=== PATIENT | female | born 1995 | race Caucasian/White ===

== ENCOUNTER 2016-05-10 08:09 | Emergency (ER) | payer OTHER ==
[~2016-05-10] VITALS: Ht 170.2 cm; Wt 72.6 kg
[~2016-05-10 08:09] MED LIST: MEDROXYPROGESTE10 M1 PO; MOTRIN800 MG PO
[2016-05-10 08:16] VITALS: BP 152/89
[2016-05-10] MEDS ORDERED: NACL 0.9% 1,000 ML IV ONE (08:30)
--- NOTE | 2016-05-10 08:30 | NUR ---
PT AMBULATED TO BED 7
--- NOTE | 2016-05-10 08:41 | NUR ---
20/F TO ED WITH C/O FEVER, N/V/D, COUGH, AND SORE THROAT X3 WEEKS INTERMITTENTLY. PT STATES SHE HAS BODY ACHES 8/10. PT IS AFEBRILE, STATES SHE TOOK MOTRIN AT HOME. BOWEL SOUNDS PRESENT X4Q. DRY NON PRODUCTIVE COUGH. LUNGS CLEAR BILAT. HR EVEN AND REGULAR. SKIN WARM AND DRY TO TOUCH. AAOX4. HR ELEVATED, ERMD AWARE. WILL CONTINUE TO MONITOR.
[2016-05-10] MEDS ORDERED: ONDANSETRON 4 MG/2 ML VIAL IVP ONE (09:25)
[2016-05-10] MEDS ORDERED: KETOROLAC 30 MG/ML VIAL IVP ONE (09:25)
[2016-05-10 10:03] VITALS: BP 148/83
--- NOTE | 2016-05-10 10:04 | NUR ---
Patient discharged with v/s stable. Written and verbal after care instructions given and explained. Patient alert, oriented and verbalized understanding of instructions. Ambulatory with steady gait. All questions addressed prior to discharge. ID band removed. Patient advised to follow up with PMD. Rx of MOTRIN, ZOFAN, CIPRO, AND PREDNISONE given. Patient educated on indication of medication including possible reaction and side effects. Opportunity to ask questions provided and answered.
== END 2016-05-10 10:04 | disposition home or self-care (01) ==
LOC: MED 08:09
DX: M54.5 Low back pain (principal); R19.7 Diarrhea, unspecified; R11.10 Vomiting, unspecified; R50.9 Fever, unspecified
CPT/HCPCS: 81002; 81025; 96361; 96374; 96375; 99284; J1885; J2405; J7030

== ENCOUNTER 2018-12-11 16:34 | Emergency (ER) | payer SELFPAY ==
[~2018-12-11] VITALS: Ht 167.6 cm; Wt 90.4 kg
[2018-12-11 16:56] VITALS: BP 116/74
--- NOTE | 2018-12-11 17:14 | NUR ---
PATIENT PRESENTS TO ED WITH NECK STIFFNESS X2 DAYS. PT STATES NECK PAIN UNRELIEVED BY TYLENOL. DENIES N/V/D; SKIN IS PINK/WARM/DRY; AAOX4 WITH EVEN AND STEADY GAIT; LUNGS CLEAR BL; HR EVEN AND REGULAR; PT DENIES ANY FEVER, CP, SOB, OR COUGH AT THIS TIME; PATIENT STATES PAIN OF 6/10 AT THIS TIME; VSS; PATIENT POSITIONED FOR COMFORT; HOB ELEVATED; BEDRAILS UP X2; BED DOWN. ER MD MADE AWARE OF PT STATUS.
[2018-12-11] MEDS ORDERED: KETOROLAC 60 MG/2 ML VIAL IM ONE (17:45)
[2018-12-11 18:30] VITALS: BP 116/74
== END 2018-12-11 18:30 | disposition home or self-care (01) ==
LOC: MED 16:34
DX: S16.1XXA Strain of muscle, fascia and tendon at neck level, initial encounter (principal); X58.XXXA Exposure to other specified factors, initial encounter; Y92.89 Other specified places as the place of occurrence of the external cause; Y93.89 Activity, other specified; Y99.8 Other external cause status
CPT/HCPCS: 96372; 99283; J1885

== ENCOUNTER 2019-05-31 15:43 | Emergency (ER) | payer OTHER ==
[~2019-05-31] VITALS: Ht 170.2 cm; Wt 93.0 kg
[2019-05-31 15:45] VITALS: BP 140/95
--- NOTE | 2019-05-31 15:50 | NUR ---
REFERRED FROM CLINIC FOR CHEST PAIN. C/O MID CHEST PAIN & EPIGASTRIC PAIN, DIZZINESS X TODAY. HR 136 AT THIS TIME. SINUS TACHYCARDIA NOTICED ON MONITOR; PT DENIES ANY FEVER, SOB, N/V/D, OR COUGH AT THIS TIME; PATIENT STATES PAIN OF 4/10 AT THIS TIME; VSS; PATIENT POSITIONED FOR COMFORT; HOB ELEVATED; BEDRAILS UP X1; BED DOWN. ER MD MADE AWARE OF PT STATUS.
--- NOTE | 2019-05-31 15:58 | NUR ---
PT AMB TO BED 9.
--- NOTE | 2019-05-31 18:00 | NUR ---
PT IS RESTING IN THE BED AND ON THE MONITOR. VSS.
[2019-05-31 18:04] LABS: BASOPHILS % (AUTO) 0.4 % (0.0-2.0); EOSINOPHILS % (AUTO) 0.4 % (0.0-4.0); HEMATOCRIT 41.7 % (36-48); HEMOGLOBIN 14.5 g/dL (12.0-16.0); LYMPHOCYTES % (AUTO) 15.7 % (20.5-51.1); MEAN CORPUSCULAR HEMOGLOBIN 29 pg (27-31); MEAN CORPUSCULAR HGB CONC 35 g/dL (33-37); MEAN CORPUSCULAR VOLUME 84.4 fL (80-94); MONOCYTES # (AUTO) 0.5 K/uL (0.8-1.0); MONOCYTES % (AUTO) 7.1 % (1.7-9.3); NEUTROPHILS # (AUTO) 4.9 K/uL (1.8-7.7); NEUTROPHILS % (AUTO) 76.4 % (42.2-75.2); PLATELET COUNT (AUTO) 258 K/uL (140-450); RED BLOOD CELL COUNT(AUTO) 4.93 MIL/uL (4.20-5.40); RED CELL DISTRIBUTION WIDTH 12.9 % (11.6-13.7); WHITE BLOOD COUNT (AUTO) 6.5 K/uL (4.8-10.8)
[2019-05-31 18:33] LABS: BARBITURATE, URINE NEG. ng/ml (NEG <=200); BENZODIAZEPINE, URINE NEG. ng/mL (NEG <=200); CANNABINOID, URINE NEG. ng/mL (NEG <=50); COCAINE, URINE NEG. ng/mL (NEG <=300); OPIATE, URINE NEG. ng/mL (NEG <=2000); PHENCYCLIDINE SCREEN,URINE NEG. ng/mL (NEG <=25)
[2019-05-31 18:39] LABS: ALBUMIN 4.2 g/dL (3.4-5.0); ANION GAP 7.3 (8-16); CARBON DIOXIDE 31.1 mmol/L (21-32); CREATININE 0.7 mg/dL (0.6-1.3); FREE T4 (FREE THYROXINE) 1.03 ng/dL (0.76-1.46); POTASSIUM 3.4 mmol/L (3.5-5.1); THYROID STIMULATING HORMONE 0.9 uIU/mL (0.34-3.74); TOTAL BILIRUBIN 0.6 mg/dL (0.0-1.0)
[2019-05-31] MEDS ORDERED: ACETAMINOPHEN EXTRA STRENGTH 500 MG TAB PO ONE (19:05)
[2019-05-31 19:22] VITALS: BP 120/75
--- NOTE | 2019-05-31 19:22 | NUR ---
Patient discharged with v/s stable. Written and verbal after care instructions given and explained. Patient verbalized understanding. Ambulatory with steady gait. All questions addressed prior to discharge. Advised to follow up with PMD.
[2019-06-01 06:11] LABS: T4 (THYROXINE) 9.3 ug/dL (4.5-12.0)
== END 2019-05-31 19:22 | disposition home or self-care (01) ==
LOC: MED 15:43
DX: R00.2 Palpitations (principal); F41.9 Anxiety disorder, unspecified
CPT/HCPCS: 36415; 80053; 80305; 81002; 84436; 84439; 84443; 84479; 85025; 93005; 99283

== ENCOUNTER 2020-06-29 18:26 | Emergency (ER) | payer MEDICAID, OTHER ==
[~2020-06-29] VITALS: Ht 167.6 cm; Wt 87.5 kg
[2020-06-29 18:37] VITALS: BP 126/85
--- NOTE | 2020-06-29 18:45 | NUR ---
Patient ambulated to bed 5. RN evaluating the patient at bedside.
--- NOTE | 2020-06-29 18:52 | NUR ---
24 Y/O FEMALE BIB SELF C/O RIGHT CALF PAIN X 2 DAYS. PT STATES ONSET WAS SUDDEN, DENIES FALL, DENIES TRAUMA. CONTINUOUS PAIN 6/10, PRESSURE, LOCAL, FELT MORE WHEN AT REST. RIGHT LEG SYMMETRICAL SIZE LEFT, INTACT, NORMAL SKIN COLOR, NORMAL TEMPERATURE, PAIN WHEN PRESSURE APPLIED. PT DENIES HX OF BLOOD CLOTS. 3 WEEKS AGO; NO COMPLICATIONS THORUGHOUT PROCEDURE OR RECOVERY. AO4, BREATHING EVEN AND UNLABORED, SKIN WARM AND DRY. BED INLOWEST POSIION, LOCKED, X1 SIDERAIL UP. PMH- PREECLAMPSIA NKA
--- NOTE | 2020-06-29 19:16 | NUR ---
Note pari in ED - 06/29/20 at 1917 by [facility] endorsement given to mey reid and Chilo report given to MEY REID AND MEY ALEMAN. Transfer of care at this time.
--- NOTE | 2020-06-29 19:17 | NUR ---
RECEIVED REPORT FROM MEY GERMAIN FOR CONTINUITY OF CARE
--- NOTE | 2020-06-29 19:17 | NUR ---
Pt report given to MEY MAY AND MEY ALEMAN. Transfer of care at this time.
--- NOTE | 2020-06-29 19:23 | NUR ---
ULTRASOUND AT BEDSIDE
--- NOTE | 2020-06-29 19:27 | NUR ---
LAB AT BEDSIDE
[2020-06-29 19:57] LABS: ALBUMIN 3.3 g/dL (3.4-5.0); ANION GAP 16.3 (8-16); CARBON DIOXIDE 22.8 mmol/L (21-32); CREATININE 0.7 mg/dL (0.6-1.3); POTASSIUM 4.1 mmol/L (3.5-5.1); PROTHROMBIN TIME 9.6 secs (10.8-13.4); TOTAL BILIRUBIN 0.4 mg/dL (0.0-1.0)
[2020-06-29 19:58] LABS: D-DIMER < 100 ng/ml (0-400)
--- NOTE | 2020-06-29 20:18 | NUR ---
EKG PERFORMED AT BEDSIDE. EKG READS SINUS RHYTHM @ 75
--- NOTE | 2020-06-29 20:18 | NUR ---
EKG AT BEDSIDE
--- NOTE | 2020-06-29 20:19 | NUR ---
XRAY AT BEDSIDE
[2020-06-29 20:31] LABS: BASOPHILS % (AUTO) 0.6 % (0.0-2.0); EOSINOPHILS # (AUTO) 0.2 K/uL (0-0.4); EOSINOPHILS % (AUTO) 2.5 % (0.0-4.0); HEMATOCRIT 37.6 % (36-48); HEMOGLOBIN 13.4 g/dL (12.0-16.0); LYMPHOCYTES # (AUTO) 3.9 K/uL (2.5-16.5); LYMPHOCYTES % (AUTO) 48.6 % (20.5-51.1); MEAN CORPUSCULAR HEMOGLOBIN 31 pg (27-31); MEAN CORPUSCULAR HGB CONC 36 g/dL (33-37); MEAN CORPUSCULAR VOLUME 87.1 fL (80-94); MONOCYTES # (AUTO) 0.4 K/uL (0.8-1.0); MONOCYTES % (AUTO) 5.5 % (1.7-9.3); NEUTROPHILS # (AUTO) 3.4 K/uL (1.8-7.7); NEUTROPHILS % (AUTO) 42.8 % (42.2-75.2); PLATELET COUNT (AUTO) 271 K/uL (140-450); RED BLOOD CELL COUNT(AUTO) 4.31 MIL/uL (4.20-5.40); RED CELL DISTRIBUTION WIDTH 12.9 % (11.6-13.7); WHITE BLOOD COUNT (AUTO) 7.9 K/uL (4.8-10.8)
[2020-06-29 21:26] VITALS: BP 126/85
== END 2020-06-29 21:27 | disposition home or self-care (01) ==
LOC: MED 18:26
DX: M79.661 Pain in right lower leg (principal); M25.512 Pain in left shoulder
CPT/HCPCS: 36415; 71045; 80053; 85025; 85379; 85610; 93005; 93971; 99285

== ENCOUNTER 2020-08-26 17:41 | Emergency (ER) | payer MEDICAID, OTHER ==
[~2020-08-26] VITALS: Ht 167.6 cm; Wt 85.7 kg
[2020-08-26 17:46] VITALS: BP 128/82
--- NOTE | 2020-08-26 17:48 | NUR ---
24 Y/O FEMALE C/O CHEST PAIN AND SEVERE ABD PAIN. PT HAD GASTRIC SLEEVE SX 08/23/20. CP STARTED TODAY AND RADIATES TO LEFT SHOULDER. ALSO C/O OF SOB, LUNG SOUNDS CLEAR BILATERAL, SPO2 100% RA. PT RATES PAIN 7/10 THAT IS SHARP/PRESSURE LIKE AND "FEELS LIKE SOMEONE IS SITTING ON MY CHEST". +N, -V. PT STATED SHE HAS NOT HAD A BOWEL MOVEMENT SINCE BEFORE SX. HYPOACTIE BOWEL SOUNDS X4 QUADS. PT HAS INCISION WOUNDS ACROSS ABD. PT A/O X4 WITH EVEN AND UNLABORED RESPIRATIONS. PT IN GOWN ON SCENE SHIFTER. PMH:DENIES SX:GASTRIC SLEEVE NKDA
--- NOTE | 2020-08-26 18:19 | NUR ---
LAB AT BEDSIDE FOR BLOOD DRAW
--- NOTE | 2020-08-26 18:25 | NUR ---
PT AMBULATED TO RESTROOM FOR URINE SAMPLE
[2020-08-26 18:30] LABS: BASOPHILS # (AUTO) 0.1 K/uL (0.00-0.22); BASOPHILS % (AUTO) 0.6 % (0.0-2.0); EOSINOPHILS # (AUTO) 0.1 K/uL (0-0.4); EOSINOPHILS % (AUTO) 1.7 % (0.0-4.0); HEMATOCRIT 34.2 % (36-48); HEMOGLOBIN 11.5 g/dL (12.0-16.0); LYMPHOCYTES # (AUTO) 2.5 K/uL (2.5-16.5); LYMPHOCYTES % (AUTO) 29.8 % (20.5-51.1); MEAN CORPUSCULAR HEMOGLOBIN 29 pg (27-31); MEAN CORPUSCULAR HGB CONC 34 g/dL (33-37); MEAN CORPUSCULAR VOLUME 86.5 fL (80-94); MONOCYTES # (AUTO) 0.6 K/uL (0.8-1.0); MONOCYTES % (AUTO) 7.1 % (1.7-9.3); NEUTROPHILS # (AUTO) 5.1 K/uL (1.8-7.7); NEUTROPHILS % (AUTO) 60.8 % (42.2-75.2); PLATELET COUNT (AUTO) 288 K/uL (140-450); RED BLOOD CELL COUNT(AUTO) 3.96 MIL/uL (4.20-5.40); RED CELL DISTRIBUTION WIDTH 13.1 % (11.6-13.7); WHITE BLOOD COUNT (AUTO) 8.3 K/uL (4.8-10.8)
[2020-08-26] MEDS ORDERED: FAMOTIDINE 20 MG TAB PO ONE (18:30)
[2020-08-26 18:49] LABS: ALBUMIN 3.6 g/dL (3.4-5.0); ANION GAP 11.8 (8-16); CARBON DIOXIDE 26.6 mmol/L (21-32); CREATININE 0.7 mg/dL (0.6-1.3); POTASSIUM 3.4 mmol/L (3.5-5.1); TOTAL BILIRUBIN 0.7 mg/dL (0.0-1.0)
--- NOTE | 2020-08-26 19:09 | NUR ---
REPORT GIVEN TO EDIL MATHIAS, TRANSFER OF CARE AT THIS TIME
[2020-08-26] MEDS ORDERED: ACETAMINOPHEN 325 MG TAB PO ONE (19:25)
[2020-08-26 19:29] VITALS: BP 122/86
[2020-08-26] MEDS ORDERED: FAMO-92 PO (19:43)
== END 2020-08-26 19:49 | disposition home or self-care (01) ==
LOC: MED 17:41
DX: R10.10 Upper abdominal pain, unspecified (principal); D64.9 Anemia, unspecified; R11.0 Nausea; Z79.899 Other long term (current) drug therapy; Z98.890 Other specified postprocedural states; Z98.84 Bariatric surgery status
CPT/HCPCS: 36415; 80053; 81002; 81025; 83690; 85025; 93005; 99284

== ENCOUNTER 2020-08-28 19:09 | Emergency (ER) | payer OTHER ==
[~2020-08-28] VITALS: Ht 167.6 cm; Wt 83.9 kg
[~2020-08-28 19:09] MED LIST changes: +FAMO-92 PO; -MEDROXYPROGESTE10 M1 PO; -MOTRIN800 MG PO
[2020-08-28 19:13] VITALS: BP 117/87
--- NOTE | 2020-08-28 19:24 | NUR ---
ERMD at bedside.
[2020-08-28] MEDS ORDERED: KETOROLAC 30 MG/ML VIAL IVP ONE (19:30)
--- NOTE | 2020-08-28 19:40 | NUR ---
Labs collected and handed to Lila from [facility].
[2020-08-28 19:51] LABS: APPEARANCE,URINE CLEAR (CLEAR); BILIRUBIN,URINE 2+ (NEGATIVE); BLOOD, URINE 2+ (NEGATIVE); COLOR,URINE YELLOW (YELLOW); LEUKOCYTE ESTERASE ,URINE NEGATIVE (NEGATIVE); NITRITE, URINE NEGATIVE (NEGATIVE); UGLUCOSE NEGATIVE (NEGATIVE)
[2020-08-28 19:53] LABS: BASOPHILS # (AUTO) 0.1 K/uL (0.00-0.22); BASOPHILS % (AUTO) 1.3 % (0.0-2.0); EOSINOPHILS # (AUTO) 0.1 K/uL (0-0.4); EOSINOPHILS % (AUTO) 1.7 % (0.0-4.0); HEMATOCRIT 35.8 % (36-48); HEMOGLOBIN 12.3 g/dL (12.0-16.0); LYMPHOCYTES # (AUTO) 1.8 K/uL (2.5-16.5); LYMPHOCYTES % (AUTO) 21.4 % (20.5-51.1); MEAN CORPUSCULAR HEMOGLOBIN 30 pg (27-31); MEAN CORPUSCULAR HGB CONC 34 g/dL (33-37); MEAN CORPUSCULAR VOLUME 86.5 fL (80-94); MONOCYTES # (AUTO) 0.6 K/uL (0.8-1.0); MONOCYTES % (AUTO) 6.6 % (1.7-9.3); NEUTROPHILS # (AUTO) 5.9 K/uL (1.8-7.7); PLATELET COUNT (AUTO) 326 K/uL (140-450); RED BLOOD CELL COUNT(AUTO) 4.14 MIL/uL (4.20-5.40); RED CELL DISTRIBUTION WIDTH 12.9 % (11.6-13.7); WHITE BLOOD COUNT (AUTO) 8.5 K/uL (4.8-10.8)
--- NOTE | 2020-08-28 19:57 | NUR ---
Patient refused Toradol medication d/t experiencing anxiety, warmth, sweating, and fast hear rate when used another time. ERMD made aware, new medication ordered for pain. Patient reports her will drive her home.
[2020-08-28] MEDS: NACL 0.9% 1,000 ML IV SCH (20:00)
--- NOTE | 2020-08-28 20:00 | NUR ---
Patient taken to CT via wheelchair.
[2020-08-28 20:07] LABS: ALBUMIN 3.9 g/dL (3.4-5.0); ANION GAP 14.2 (8-16); CREATININE 0.7 mg/dL (0.6-1.3); POTASSIUM 3.2 mmol/L (3.5-5.1); TOTAL BILIRUBIN 0.7 mg/dL (0.0-1.0)
[2020-08-28 20:17] LABS: RBC,URINE 0-5 /HPF (0-5); WBC,URINE 0-5 /HPF (0-5)
[2020-08-28] MEDS: MORPHINE SULFATE 4 MG/ML SYR IVP ONE (20:23)
[2020-08-28] MEDS ORDERED: ACET-8386 PO (21:08)
[2020-08-28 21:37] VITALS: BP 122/81
--- NOTE | 2020-08-28 21:37 | NUR ---
Patient discharged with v/s stable. Written and verbal after care instructions given and explained. Patient alert, oriented and verbalized understanding of instructions. Ambulatory with steady gait. All questions addressed prior to discharge. ID band removed. Patient advised to follow up with PMD. Rx of HYDROCODONE-ACETAMINOPHEN given. Patient educated on indication of medication including possible reaction and side effects. Opportunity to ask questions provided and answered.
== END 2020-08-28 21:37 | disposition home or self-care (01) ==
LOC: MED 19:09
DX: R10.13 Epigastric pain (principal); R07.89 Other chest pain; Z98.84 Bariatric surgery status
CPT/HCPCS: 36415; 71045; 74177; 80053; 81001; 81025; 83690; 85025; 96361; 96374; 99285; J2270; J7030; Q9967; J1885

== ENCOUNTER 2020-09-29 09:07 | Emergency (ER) | payer OTHER ==
[~2020-09-29] VITALS: Ht 167.6 cm; Wt 77.1 kg
[~2020-09-29 09:07] MED LIST changes: +ACET-8386 PO
[2020-09-29 09:16] VITALS: BP 110/70
--- NOTE | 2020-09-29 09:20 | NUR ---
Patient ambulated to bed 04 with steady/even gait.
--- NOTE | 2020-09-29 09:24 | NUR ---
Dr. Vo is evaluating patient at bedside.
--- NOTE | 2020-09-29 09:30 | NUR ---
25 y/o F BIB self from home with c/c R rib, R flank pain. Patient A&Ox4, ambulatory, states epigastric pain, 6/10, sharp/intermittent, radiating to right flank. Patient states pain would occur 1-2x/day and progressively worsen to every 30m-1hr. Patient states onset is random. Denies N/V/D, fever/chills, dysuria, headache, dizziness, back pain. Reports Tylenol 1000mg at 0300 with relief. Last BM: last night; normal/semi-formed. Abd soft/flat. Bowel sounds normoactive x 4 quadrants. VSS. Bed locked in lowest position, side rails x 1, call light in reach. PMH/Meds: Denies Sx: Gastric slevel 08/23/20 Allergies: Ketorolac per pt "increases my HR/gives me anxiety"
--- NOTE | 2020-09-29 09:33 | NUR ---
Dr. Vo is reevaluating the patient at bedside.
--- NOTE | 2020-09-29 09:39 | NUR ---
Patient to restroom for urine sample attempt.
[2020-09-29] MEDS ORDERED: ACETAMINOPHEN 325 MG TAB PO ONE (09:40)
--- NOTE | 2020-09-29 09:40 | NUR ---
Pt placed into a gown for US
--- NOTE | 2020-09-29 09:44 | NUR ---
Lab at bedside
--- NOTE | 2020-09-29 09:53 | NUR ---
US tech at bedside for exam.
[2020-09-29 09:54] LABS: BASOPHILS % (AUTO) 0.9 % (0.0-2.0); EOSINOPHILS # (AUTO) 0.1 K/uL (0-0.4); HEMATOCRIT 36.5 % (36-48); HEMOGLOBIN 12.1 g/dL (12.0-16.0); LYMPHOCYTES # (AUTO) 1.9 K/uL (2.5-16.5); LYMPHOCYTES % (AUTO) 40.5 % (20.5-51.1); MEAN CORPUSCULAR HEMOGLOBIN 29 pg (27-31); MEAN CORPUSCULAR HGB CONC 33 g/dL (33-37); MEAN CORPUSCULAR VOLUME 88.7 fL (80-94); MONOCYTES # (AUTO) 0.3 K/uL (0.8-1.0); MONOCYTES % (AUTO) 6.9 % (1.7-9.3); NEUTROPHILS # (AUTO) 2.3 K/uL (1.8-7.7); NEUTROPHILS % (AUTO) 48.7 % (42.2-75.2); PLATELET COUNT (AUTO) 243 K/uL (140-450); RED BLOOD CELL COUNT(AUTO) 4.12 MIL/uL (4.20-5.40); RED CELL DISTRIBUTION WIDTH 13.9 % (11.6-13.7); WHITE BLOOD COUNT (AUTO) 4.6 K/uL (4.8-10.8)
[2020-09-29 10:11] LABS: ALBUMIN 3.8 g/dL (3.4-5.0); ANION GAP 9.9 (8-16); CARBON DIOXIDE 26.9 mmol/L (21-32); CREATININE 0.7 mg/dL (0.6-1.3); POTASSIUM 3.8 mmol/L (3.5-5.1); TOTAL BILIRUBIN 0.4 mg/dL (0.0-1.0)
--- NOTE | 2020-09-29 10:12 | NUR ---
Patient states pain increased to 7/10 due to Ultrasound procedure
--- NOTE | 2020-09-29 10:22 | NUR ---
Patient resting comfortably with both eyes open laying on left side in position of comfort. Patient reports pain subsided to a 4/10. [place] provided per request. VSS; RR even/unlabored. Bed locked in lowest position, side rails x 1, call light in reach.
[2020-09-29 11:21] VITALS: BP 112/74
== END 2020-09-29 11:21 | disposition home or self-care (01) ==
LOC: MED 09:07
DX: K29.70 Gastritis, unspecified, without bleeding (principal)
CPT/HCPCS: 36415; 76705; 80053; 81025; 83690; 85025; 99284

== ENCOUNTER 2021-01-16 16:46 | Emergency (ER) | payer OTHER ==
[~2021-01-16] VITALS: Ht 167.6 cm; Wt 67.6 kg
[2021-01-16 17:01] VITALS: BP 127/80
[2021-01-16 20:21] VITALS: BP 127/73
== END 2021-01-16 20:23 | disposition home or self-care (01) ==
LOC: MED 16:46
DX: R13.10 Dysphagia, unspecified (principal); Z98.890 Other specified postprocedural states; Z79.891 Long term (current) use of opiate analgesic; Z79.899 Other long term (current) drug therapy
CPT/HCPCS: 70360; 70491; 99285; Q9967